=== PATIENT | male | born 1950 | race Caucasian/White ===

== ENCOUNTER → 2016-07-24 | Outpatient (CLI) | payer OTHER ==
[~2016-07-24] VITALS: Ht 172.7 cm; Wt 142.0 kg
[~2016-07-24] MED LIST: COUMADIN PO; FEOSOL325 MG PO; FISH OIL CONC1 EACH PO; LO-DOSE ASPIRIN81 M2 PO; METABO-EPHEDRA1 EACH PO; MULTI-DAY VITA1 EACH PO; OSTEO BI-FLEX1 EAC1 PO; PREVACID30 MG PO; SENOKOT S,PE1 TABLET PO; Vicodin,Lortab 5/500 PO; Vitamin-E PO; XIFAXAN550 MG PO
[2016-07-24 09:19] LABS: INTER. NORMALIZED RATIO 1.5; PROTHROMBIN TIME 15.7 (9.2-11.2); PTT 26.8 (25-32)
== END | disposition home or self-care (01) ==
LOC: OPR 08:34 → EDSTATUS 09:00 → OPR 09:00
PROVIDERS: Family Medicine
PROC: 0FB13ZX Excision of Right Lobe Liver, Percutaneous Approach, Diagnostic (ICD-10-PCS; principal; 2016-07-24)
DX: C78.7 Secondary malignant neoplasm of liver and intrahepatic bile duct (principal); R93.3 Abnormal findings on diagnostic imaging of other parts of digestive tract
CPT/HCPCS: 77012; 85610; 85730; 88307; 88341 TC; 88342 TC; J3010